=== PATIENT | female | born 1980 | race Caucasian/White ===

== ENCOUNTER 2017-03-24 09:31 | Emergency (ER) | payer OTHER ==
[~2017-03-24] VITALS: Ht 172.7 cm; Wt 104.3 kg
[~2017-03-24 09:31] MED LIST: CLAR10TA7 PO; magic mouthwash SWISH-SPIT
[2017-03-24 09:32] VITALS: BP 179/86; PULSE 93; RESP 18; TEMP 99; O2SAT 100
--- NOTE | 2017-03-24 10:06 | PD ---
HPI Chief Complaint: Pain: Acute or Chronic Time Seen by Provider: 10:00 Travel History International Travel<30 days: No Contact w/Intl Traveler<30days: No Traveled to known affect area: No History of Present Illness HPI This 36-year-old female here with complaint of sciatic pain and foul-smelling urine. Sciatic pain has been present for greater than 7 months. pain localized to the left lumbar region that radiates into the buttocks and down the back leg. She denies paresthesia or weakness. She denies fever or chills. She denies saddle anesthesia or incontinence. She also noticed foul-smelling urine several days ago. She has had similar episodes foul-smelling urine with UTI in the past. No dysuria or vaginal discharge. Symptom severity is moderate. Sciatic pain is aggravated by movement and relieved with rest. PFSH Past Medical History Narrative Medical History of sciatica Diminished Hearing: No Immunizations Current: No (PARENTS WERE AGAINST ANY IMMUNIZATION/ PT NEVER HAD ANY) ?: Not LMP: 03/05/17 : 2 Para: 2 Social History Alcohol Use: Yes Tobacco Use: No Substance Use: No Allergies-Medications (Allergen,Severity, Reaction): Coded Allergies: codeine (Unverified Allergy, Mild, 03/24/17) penicillin G (Unverified Allergy, Mild, 03/24/17) DENIES ALLERGY Reported Meds & Prescriptions Reported Meds & Active Scripts Active Robaxin (Methocarbamol) 500 Mg Tab 500 Mg PO TID Meloxicam 15 Mg Tab 15 Mg PO DAILY Review of Systems Except as stated in HPI: all other systems reviewed are Neg General / Constitutional: No: Fever Eyes: No: Visual changes HENT: No: Headaches Cardiovascular: No: Chest Pain or Discomfort Respiratory: No: Shortness of Breath Gastrointestinal: No: Abdominal Pain Skin: No Rash Neurologic: No: Weakness Physical Exam Narrative GENERAL: Alert female. Well-appearing. SKIN: Warm and dry. HEAD: Atraumatic. Normocephalic. EYES: Pupils equal and round. No injection or drainage. NECK: Trachea midline. CARDIOVASCULAR: Regular rate and rhythm. RESPIRATORY: No accessory muscle use. Clear to auscultation. Breath sounds equal bilaterally. GASTROINTESTINAL: Abdomen soft, non-tender, nondistended. MUSCULOSKELETAL: Extremities without clubbing, cyanosis, or edema. No obvious deformities. NEUROLOGICAL: Awake and alert. Motor grossly within normal limits. Normal strength and sensation of the lower extremities. Patient is able dorsiflex and plantarflex the foot. BACK: Mild tenderness over the left sacroiliac region. No CVA tenderness. No point tenderness on palpation of the spine. PSYCHIATRIC: Appropriate mood and affect; insight and judgment normal. Data Data Last Documented VS Vital Signs Date Time Temp Pulse Resp B/P (MAP) Pulse Ox O2 Delivery O2 Flow Rate FiO2 03/24/17 09:32 99.0 93 18 179/86 (117) 100 Orders Orders Urinalysis - C+S If Indicated (03/24/17 09:59) Ed Urine Pregnancytest Poc (03/24/17 09:59) Ed Discharge Order (03/24/17 10:41) Labs Laboratory Tests Test 03/24/17 10:15 Urine Collection Type CLEAN CATCH Urine Color YELLOW Urine Turbidity CLEAR Urine pH 7.0 Urine Specific [place] 1.018 Urine Protein NEG mg/dL Urine Glucose (UA) NEG mg/dL Urine Ketones NEG mg/dL Urine Occult Blood NEG Urine Nitrite NEG Urine Bilirubin NEG Urine Leukocyte Esterase TRACE Urine WBC 0-2 /hpf Urine Squamous Epithelial Cells 3-5 /hpf Microscopic Urinalysis Comment CULT NOT INDICATED MDM Medical Decision Making Medical Screen Exam Complete: Yes Emergency Medical Condition: Yes Differential Diagnosis Sciatica, lumbar strain, UTI, pyelonephritis Narrative Course 36-year-old female here with chronic sciatic pain. She has a normal neurologic exam. She is also complaining of foul-smelling urine similar to a previous UTI. She denies fever or chills. Her physical exam is reassuring. UA: No infection Urine : Negative She'll be treated for sciatica with NSAIDs, muscle relaxers and instructed to follow up with primary. Diagnosis Primary Impression: Sciatica Qualified Codes: M54.32 - Sciatica, left side Referrals: Primary Care Physician Additional Instructions: Make an appointment for follow-up the primary. Avoid heavy lifting or sinus activity. Medication as prescribed. Scripts Methylprednisolone Dosepak (Medrol Dosepak) 4 Mg Dspk 4 MG PO DIRECTED, #1 DSPK 0 Refills Per Pharmacist direction Prov: Kylah Jordan 03/24/17 Methocarbamol (Robaxin) 500 Mg Tab 500 MG PO TID for Muscle Spasm, #12 TAB 0 Refills Prov: Kylah Jordan 03/24/17 Disposition: 01 DISCHARGE HOME Condition: Stable Kylah Jordan Mar 24, 2017 10:06
[2017-03-24 10:26] LABS: BILIRUBIN, URINE NEG (NEG); BLOOD, URINE NEG (NEG); GLUCOSE,URINE NEG (NEG); KETONE, URINE NEG (NEG); NITRITE,URINE NEG (NEG); URINE LEUKOCYTE ESTERASE TRACE (NEG)
[2017-03-24 10:33] LABS: URINE COLOR YELLOW (YELLW/STRAW)
[2017-03-24 10:34] LABS: WBC, URINE 0-2 /hpf (0-5)
[2017-03-24] MEDS ORDERED: MELO15TA20 PO (10:39)
[2017-03-24] MEDS ORDERED: ROBA500T PO (10:39)
[2017-03-24] MEDS ORDERED: MEDR4PAK PO (10:44)
[2017-03-25] MEDS ORDERED: TRAM50TA PO (15:48)
== END 2017-03-24 10:49 | disposition home or self-care (01) ==
LOC: PHEFT 09:31
DX: M54.32 Sciatica, left side (principal); Z79.899 Other long term (current) drug therapy; Z88.5 Allergy status to narcotic agent; Z88.0 Allergy status to penicillin
CPT/HCPCS: 81001; 84703; 99284

== ENCOUNTER 2017-03-25 15:04 | Emergency (ER) | payer OTHER ==
[~2017-03-25] VITALS: Ht 172.7 cm; Wt 104.0 kg
[~2017-03-25 15:04] MED LIST changes: -CLAR10TA7 PO; +MEDR4PAK PO; +ROBA500T PO; -magic mouthwash SWISH-SPIT
[2017-03-25 15:10] VITALS: BP 158/87; PULSE 88; RESP 16; TEMP 98.2; O2SAT 98
[2017-03-25] MEDS ORDERED: TRAM50TA PO (15:48)
--- NOTE | 2017-03-25 15:56 | PD ---
HPI Chief Complaint: Musculoskeletal Complaint Time Seen by Provider: 15:19 Travel History International Travel<30 days: No Contact w/Intl Traveler<30days: No Traveled to known affect area: No History of Present Illness HPI The patient was seen and examined in the presence of the nurse. This patient complains of sciatica. She's had it for 7 months every day. She has pain in the left buttock radiating down the back of the left leg to the level of the heel. No muscle weakness or sensory loss. No injury started this soft. No fever. She was seen here yesterday. Severity is moderate PFSH Past Medical History Diminished Hearing: No Immunizations Current: No (PARENTS WERE AGAINST ANY IMMUNIZATION/ PT NEVER HAD ANY) Tetanus Vaccination: Unknown Influenza Vaccination: No ?: Not LMP: 03/05/17 : 2 Para: 2 Social History Alcohol Use: Yes (OCCASIONAL) Tobacco Use: No Substance Use: No Allergies-Medications (Allergen,Severity, Reaction): Coded Allergies: codeine (Unverified Allergy, Mild, 03/25/17) penicillin G (Unverified Allergy, Mild, 03/25/17) DENIES ALLERGY Reported Meds & Prescriptions Reported Meds & Active Scripts Active Tramadol (Tramadol HCl) 50 Mg Tab 50 Mg PO Q6H PRN Medrol Dosepak (Methylprednisolone) 4 Mg Dspk 4 Mg PO DIRECTED Per Pharmacist direction Robaxin (Methocarbamol) 500 Mg Tab 500 Mg PO TID Review of Systems General / Constitutional: No: Fever HENT: No: Headaches Cardiovascular: No: Chest Pain or Discomfort Respiratory: No: Cough Physical Exam Narrative GASTROINTESTINAL: Abdomen soft, non-tender, nondistended. Positive bowel sounds. No hepato-splenomegaly, or palpable masses. No guarding. NEUROLOGICAL: Awake and alert. Pupils are equal round and reactive. Motor and sensory grossly within normal limits. Five out of 5 muscle strength in all muscle groups. Normal speech. Back: No midline tenderness. Has pain in the left buttock in the sacral notch SKIN: Focused skin assessment reveals no rash or ulcers. Skin is warm and dry. Palpation shows no induration or nodules. Data Data Last Documented VS Vital Signs Date Time Temp Pulse Resp B/P (MAP) Pulse Ox O2 Delivery O2 Flow Rate FiO2 03/25/17 15:10 98.2 88 16 158/87 (110) 98 Orders Orders Ed Discharge Order (03/25/17 15:34) Ketorolac Inj (Toradol Inj) (03/25/17 16:00) MDM Medical Decision Making Medical Screen Exam Complete: Yes Emergency Medical Condition: Yes Medical Record Reviewed: Yes Differential Diagnosis Sciatica, lumbar strain, herniated disc Narrative Course I have reviewed the patient's electronic medical record. Patient is neurologically intact. This is a flare of a chronic problem She now has [facility] insurance and has a primary care appointment set up She plans to ask for MRI of the lumbosacral spine to look for disc herniation or something correctable since this is now chronic She's failed multiple conservative measures I gave her Toradol injection. She is driving and I cannot sedate her Tramadol prescription given The patient was advised to follow up with their physician and return if they worsen. The patient was warned about potential sedation for the medications they will receive on prescription. Diagnosis Primary Impression: Chronic sciatica of left side Additional Instructions: The patient was advised to follow up with their physician and return if they worsen. The patient was warned about potential sedation for the medications they will receive on prescription. Med/Other Pt SpecificInfo: Prescription(s) given Scripts Tramadol (Tramadol) 50 Mg Tab 50 MG PO Q6H Y for PAIN, #25 TAB 0 Refills Prov: Stephan Cervantes MD 03/25/17 Disposition: 01 DISCHARGE HOME Condition: Stable Stephan Cervantes MD Mar 25, 2017 15:56
[2017-03-25] MEDS ORDERED: KETOROLAC TROMETHAMINE 60 MG/2 ML (IM) VIAL IM ONE (16:00)
== END 2017-03-25 16:20 | disposition home or self-care (01) ==
LOC: PHED 15:04
DX: M54.32 Sciatica, left side (principal); Z79.899 Other long term (current) drug therapy; Z88.0 Allergy status to penicillin; Z88.5 Allergy status to narcotic agent
CPT/HCPCS: 96372; 99283; J1885